=== PATIENT | female | born 1960 | race Caucasian/White ===

== ENCOUNTER 2016-04-17 16:07 | Emergency (ER) | payer OTHER ==
[~2016-04-17] VITALS: Ht 172.7 cm; Wt 70.8 kg
[~2016-04-17 16:07] MED LIST: ASPIR-TRIN325 M1 PO; Ascorbic Acid,Ester- PO; DILAUDID2 MG PO; Echinacea PO; SENOKOT S,PE1 TABLET PO; Zinc Gluconate PO; [UNRECOGNIZED DRUG - OTHER] PO
[2016-04-17 18:54] VITALS: BP 132/78
== END 2016-04-17 18:54 | disposition home or self-care (01) ==
LOC: EME 16:07
PROC: 0PSTXZZ Reposition Right Finger Phalanx, External Approach (ICD-10-PCS; principal; 2016-04-17)
DX: S62.626A Displaced fracture of middle phalanx of right little finger, initial encounter for closed fracture (principal); W22.8XXA Striking against or struck by other objects, initial encounter
CPT/HCPCS: 73140; 99281; 99283